=== PATIENT | female | born 1975 | race American Indian/Alaskan Native ===

== ENCOUNTER 2017-12-11 18:37 | Emergency (ER) | payer OTHER ==
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
[2017-12-12] MEDS ORDERED: TORADOL IM ONE (02:32)
[2017-12-12] MEDS ORDERED: FLEXERIL PO ONE (02:34)
[2017-12-12 03:25] VITALS: BP 134/88
== END 2017-12-12 03:06 | disposition home or self-care (01) ==
LOC: ED 18:37
DX: S46.912A Strain of unspecified muscle, fascia and tendon at shoulder and upper arm level, left arm, initial encounter (principal); M54.2 Cervicalgia; R07.9 Chest pain, unspecified; Z88.0 Allergy status to penicillin; Z88.5 Allergy status to narcotic agent; V49.49XA Driver injured in collision with other motor vehicles in traffic accident, initial encounter; Y93.89 Activity, other specified; Y92.89 Other specified places as the place of occurrence of the external cause; Y99.8 Other external cause status
CPT/HCPCS: 96372; 99282; J1885